=== PATIENT | male | born 1980 | race Caucasian/White ===

== ENCOUNTER 2016-05-14 09:02 | Emergency (ER) | payer BC ==
[2016-05-14 09:26] VITALS: BP 138/90
--- NOTE | 2016-05-14 10:29 | UC ---
Ear Complaint HPI - HPI Summary HPI Summary: c/o productive cough with green to brown secretions x 2 weeks. States sore throat x 1 week. Also with fatigue, and L ear pain worse in the past 2 days with decreased hearing no drainage. [ End ] - History of Current Complaint Chief Complaint: UCRespiratory Stated Complaint: FEVER,SORE THROAT,EAR PAIN Time Seen by Provider: 05/14/16 10:24 Hx Obtained From: Patient Onset/Duration: Gradual Onset Severity Initially: Mild Severity Currently: Moderate Alleviating Factors: Nothing Associated Signs/Symptoms: Negative: Discharge, Hearing Loss - Allergies/Home Medications Allergies/Adverse Reactions: Allergies Allergy/AdvReac Type Severity Reaction Status Date / Time No Known Allergies Allergy Verified 05/14/16 09:20 Home Medications: Home Medications Ibuprofen [Advil] 800 mg PO ONCE PRN 05/14/16 [History Confirmed 05/14/16] PMH/Surg Hx/FS Hx/Imm Hx Previously Healthy: Yes Endocrine History Of: Denies: Diabetes, Thyroid Disease Cardiovascular History Of: Denies: Cardiac Disorders, Hypertension, Pacemaker/ICD Respiratory History Of: Denies: COPD, Asthma GI/ History Of: Denies: Ulcer, Renal Disease - Surgical History Surgical History: None - Family History Known Family History: Positive: None - negative for HTN or CAD - Social History Occupation: Employed Full-time Lives: With Family Alcohol Use: Occasionally Alcohol Amount: few times a week Substance Use Type: None Smoking Status (MU): Never Smoked Tobacco Have You Smoked in the Last Year: No - Immunization History Most Recent Influenza Vaccination: not this season Hx Tetanus, Diphtheria Vaccination: Yes Vaccination Up to Date: Yes Review of Systems Constitutional: Negative Skin: Negative Eyes: Negative ENT: Ear Ache, Nasal Discharge, Other - sinus pressure Respiratory: Negative Cardiovascular: Negative Gastrointestinal: Negative Genitourinary: Negative Motor: Negative Neurovascular: Negative Musculoskeletal: Negative Neurological: Negative Psychological: Negative All Other Systems Reviewed And Are Negative: Yes Physical Exam Triage Information Reviewed: Yes Appearance: Well-Appearing, No Pain Distress, Well-Nourished Vital Signs: Initial Vital Signs Temp 98 F 05/14/16 09:21 Pulse 86 05/14/16 09:21 Resp 18 05/14/16 09:21 BP 138/90 05/14/16 09:21 Pulse Ox 98 05/14/16 09:21 Vital Signs Reviewed: Yes Eye Exam: Normal ENT Exam: Normal ENT: Positive: Pharynx normal, Nasal congestion, Nasal drainage, TM bulging - left, TM dull - left, TM red - left. Negative: Tonsillar swelling, Tonsillar exudate, Trismus Dental Exam: Normal Neck exam: Normal Neck: Positive: 1 Respiratory Exam: Normal Cardiovascular Exam: Normal Abdominal Exam: Normal Musculoskeletal Exam: Normal Neurological Exam: Normal Psychological Exam: Normal Skin Exam: Normal Ear Complaint Course/Dx - Differential Dx/Diagnosis Differential Diagnosis/HQI/PQRI: Otitis Media, Perforated TM, URI Provider Diagnoses: Left AOM Discharge - Discharge Plan Condition: Good Disposition: HOME Prescriptions: Amoxicillin/Clavulanate TAB* [Augmentin TAB 875*] 875 mg PO BID #20 tab Patient Education Materials: Otitis Media (ED) Referrals: Luca Kate DO [Primary Care Provider] - 3 Days
== END 2016-05-14 10:42 | disposition home or self-care (01) ==
LOC: UCCORT 09:02
DX: H66.92 Otitis media, unspecified, left ear (principal); R09.81 Nasal congestion
CPT/HCPCS: 99212; G0463

== ENCOUNTER 2016-06-08 09:38 | Emergency (ER) | payer BC ==
[2016-06-08 10:58] VITALS: BP 131/81
[2016-06-08] MEDS ORDERED: Amoxicillin/Clavulanate TAB* 875 MG PO ONE (11:46)
--- NOTE | 2016-06-08 11:54 | UC ---
Throat Pain/Nasal Good HPI - HPI Summary HPI Summary: 36 yo male with sinus pressure and pain x 5-7 days This am developed sore throat recent exposure to strep no f/c - History of Current Complaint Chief Complaint: UCRespiratory Stated Complaint: SORE THROAT Time Seen by Provider: 06/08/16 11:36 Hx Obtained From: Patient Onset/Duration: Gradual Onset, Lasting Days Severity: Moderate Pain Intensity: 4 Pain Scale Used: 0-10 Numeric Cough: None Associated Signs & Symptoms: Positive: Sinus Discomfort, Nasal Discharge - Epiglottits Risk Factors Epiglottis Risk Factors: Negative - Allergies/Home Medications Allergies/Adverse Reactions: Allergies Allergy/AdvReac Type Severity Reaction Status Date / Time No Known Allergies Allergy Verified 06/08/16 10:36 PMH/Surg Hx/FS Hx/Imm Hx Previously Healthy: Yes Endocrine History Of: Denies: Diabetes, Thyroid Disease Cardiovascular History Of: Denies: Cardiac Disorders, Hypertension, Pacemaker/ICD Respiratory History Of: Denies: COPD, Asthma GI/ History Of: Denies: Ulcer, Renal Disease - Surgical History Surgical History: None - Family History Known Family History: Positive: Cardiac Disease Negative: Hypertension, Diabetes - Social History Alcohol Use: Occasionally Alcohol Amount: few times a week Substance Use Type: None Smoking Status (MU): Never Smoked Tobacco Have You Smoked in the Last Year: No - Immunization History Most Recent Influenza Vaccination: not this season Hx Tetanus, Diphtheria Vaccination: Yes Vaccination Up to Date: Yes Review of Systems Constitutional: Negative Skin: Negative Eyes: Negative ENT: Sore Throat, Nasal Discharge Respiratory: Negative Cardiovascular: Negative Gastrointestinal: Negative Genitourinary: Negative Motor: Negative Neurovascular: Negative Musculoskeletal: Negative Neurological: Negative Psychological: Negative All Other Systems Reviewed And Are Negative: Yes Physical Exam Triage Information Reviewed: Yes Appearance: Well-Appearing, No Pain Distress Vital Signs: Initial Vital Signs Temp 97.8 F 06/08/16 10:37 Pulse 92 06/08/16 10:37 Resp 16 06/08/16 10:37 BP 131/81 06/08/16 10:37 Pulse Ox 97 06/08/16 10:37 Vital Signs Reviewed: Yes Eyes: Positive: Conjunctiva Clear ENT: Positive: Hearing grossly normal, Pharyngeal erythema, Nasal congestion, Nasal drainage, TMs normal, Tonsillar swelling. Negative: Tonsillar exudate, Trismus Dental: Negative: Gross Decay/Caries @, Dental Fracture @, Abscess @ Neck: Positive: Supple, Enlarged Nodes @ - anterior cervical Respiratory Exam: Normal Respiratory: Positive: Lungs clear, Normal breath sounds, No respiratory distress Cardiovascular: Positive: RRR, No Murmur Abdomen Description: Positive: Nontender Musculoskeletal: Positive: ROM Intact, No Edema Neurological: Positive: Alert Psychological Exam: Normal Skin Exam: Normal Throat Pain/Nasal Course/Dx - Differential Dx/Diagnosis Provider Diagnoses: pharyngitis. sinusitis Discharge - Discharge Plan Condition: Stable Disposition: HOME Prescriptions: Amoxicillin/Clavulanate TAB* [Augmentin TAB 875*] 875 mg PO BID #20 tab Patient Education Materials: Pharyngitis (ED), Sinusitis (ED) Referrals: Luca Kate DO [Primary Care Provider] - 5 Days (if not better) Additional Instructions: recheck for new or worsening symptoms
== END 2016-06-08 11:55 | disposition home or self-care (01) ==
LOC: UCCORT 09:38
DX: J32.9 Chronic sinusitis, unspecified (principal); J02.9 Acute pharyngitis, unspecified
CPT/HCPCS: 87651; 99212; G0463

== ENCOUNTER 2017-03-16 07:16 | Emergency (ER) | payer BC ==
--- NOTE | 2017-03-16 07:29 | UC ---
Lower Extremity/Ankle HPI - HPI Summary HPI Summary: 37 year old male with left foot pain. c/o last week, wearing boots, and top of foot was irritated. States twisted foot Monday while carrying son up stairs. States now with swelling and increased pain on lateral aspect of foot. pain 1/ 10 at rest and 8/10 with ambulation. no trauma. missed 4 days of work and not better. [ End ] - History of Current Complaint Stated Complaint: LEFT FOOT COMPLAINT Time Seen by Provider: 03/16/17 07:27 Hx Obtained From: Patient Onset/Duration: Sudden Onset Severity Initially: Moderate Severity Currently: Moderate Able to Bear Weight: Yes - Allergies/Home Medications Allergies/Adverse Reactions: Allergies Allergy/AdvReac Type Severity Reaction Status Date / Time No Known Allergies Allergy Verified 03/16/17 07:30 Home Medications: Home Medications Ibuprofen [Ibuprofen 200 MG] 800 mg PO Q6H PRN 03/16/17 [History Confirmed 03/16] PMH/Surg Hx/FS Hx/Imm Hx Previously Healthy: Yes - Surgical History Surgical History: None - Family History Known Family History: Positive: Cardiac Disease Negative: Hypertension, Diabetes - Social History Occupation: Employed Full-time Alcohol Use: Occasionally Alcohol Amount: few times a week Substance Use Type: None Smoking Status (MU): Never Smoked Tobacco Have You Smoked in the Last Year: No - Immunization History Most Recent Influenza Vaccination: not this season Hx Tetanus, Diphtheria Vaccination: Yes Vaccination Up to Date: Yes Review of Systems Constitutional: Negative Skin: Negative Eyes: Negative ENT: Negative Respiratory: Negative Cardiovascular: Negative Gastrointestinal: Negative Genitourinary: Negative Motor: Negative Neurovascular: Negative Musculoskeletal: Arthralgia Neurological: Negative Psychological: Negative All Other Systems Reviewed And Are Negative: Yes Physical Exam Triage Information Reviewed: Yes Appearance: Well-Appearing, Well-Nourished Vital Signs Reviewed: Yes Eyes: Positive: Conjunctiva Clear Cardiovascular Exam: Normal Abdominal Exam: Normal Musculoskeletal: Positive: ROM Limited @ - with flexion and inversion of the left foot. diffuse tenderness throughout the foot. noskin changes. no edema. no effusion. no break in skin. sensation intact. Neurological Exam: Normal Psychological Exam: Normal Skin Exam: Normal Diagnostics - Laboratory Diagnostic Studies Completed/Ordered: IMPRESSION: NEGATIVE EXAMINATION. -- Lower Extremity Course/Dx - Course Course Of Treatment: exam does not show any acute concerns or abrnormality on xray. he has high pain threshold and for him to be in so much pain with ambulation and for this long is a concern for me. we will refer to ortho at this time to further evaluate and clear for him to return to work . - Differential Dx/Diagnosis Differential Diagnosis/HQI/PQRI: Contusion, Fracture (Closed), Gout, Sprain, Strain Provider Diagnoses: left ankle sprain Discharge - Discharge Plan Condition: Good Disposition: HOME Patient Education Materials: Ankle Strain (ED) Forms: *Work Release Referrals: Luca Kate DO [Primary Care Provider] - If Needed Taqueria Crawfrod MD [Medical Doctor] - 1 Day (Ortho referral )
[2017-03-16 07:48] VITALS: BP 147/89
--- NOTE | 2017-03-16 08:04 | RAD ---
INDICATION: Left foot pain for 2 to 3 weeks COMPARISON: None TECHNIQUE: AP, lateral, and oblique views were obtained. FINDINGS: The bony structures, joint spaces, and soft tissues are normal for age. IMPRESSION: NEGATIVE EXAMINATION.
== END 2017-03-16 08:18 | disposition home or self-care (01) ==
LOC: UCCORT 07:16
DX: S93.402A Sprain of unspecified ligament of left ankle, initial encounter (principal); X50.9XXA Other and unspecified overexertion or strenuous movements or postures, initial encounter; Y92.9 Unspecified place or not applicable
CPT/HCPCS: 99212; G0463